=== PATIENT | male | born 1950 | race Caucasian/White ===

== ENCOUNTER 2019-08-11 01:39 | Inpatient (IN) | payer OTHER, MEDICARE ==
[2019-08-11] VITALS (41 sets, daily range): BP systolic 124–215; BP diastolic 75–108
[~2019-08-11] VITALS: Ht 175.3 cm; Wt 100.0 kg
[~2019-08-11 01:39] MED LIST: ALLO300T2 PO; ASPI-255 PO; Amoxicillin/Clavulanate Potas PO; BUSP5TA PO; CRES40TA PO; DILT1CAP2 PO; FLUO20CA19 PO; GABA-843 PO; GLIP5TAB8 PO; LIDO5OIN11 TOP; METF-414 PO; MULTLIQ PO; Meclizine Hcl PO; NATUSOL OU; OMEP1CAP73 PO; OXAZ10CA3 PO; POTA10TA17 PO; PRAZ2CAP PO; THIA100T7 PO
[2019-08-11 02:09] LABS: BASO % 0.3 % (0.0-1.0); EOS # 0.1 10^3/uL (0.0-0.5); EOS % 1.4 % (0.0-3.0); HEMATOCRIT 44.7 % (42.0-52.0); HEMOGLOBIN 14.4 g/dl (13.5-17.5); LYMPH # 2.8 10^3/uL (1.5-5.0); LYMPH % 29.2 % (24.0-44.0); MEAN CORPUSCULAR HEMOGLOBIN 30.9 pg (27.0-33.0); MEAN CORPUSCULAR HGB CONC 32.2 g/dl (32.0-36.5); MEAN CORPUSCULAR VOLUME 95.9 fl (80.0-96.0); MONO # 0.4 10^3/uL (0.0-0.8); MONO % 3.9 % (0.0-5.0); NEUTROPHILS # 6.3 10^3/uL (1.5-8.5); NEUTROPHILS % 64.7 % (36.0-66.0); PLATELET COUNT, AUTOMATED 210 10^3/uL (150-450); RED BLOOD COUNT 4.66 10^6/uL (4.30-6.10); WHITE BLOOD COUNT 9.7 10^3/uL (4.0-10.0)
[2019-08-11] MEDS ORDERED: GLIP5TAB20 PO ×2 (02:15→04:17)
[2019-08-11] MEDS ORDERED: D 202000 PO (02:15)
[2019-08-11] MEDS ORDERED: K-TA10TA2 PO ×2 (02:15→04:17)
[2019-08-11] MEDS ORDERED: DEBR6.5S4 OTIC (02:15)
[2019-08-11] MEDS ORDERED: diclofenac gel (02:15)
[2019-08-11] MEDS ORDERED: OMEP40CA97 PO (02:15)
[2019-08-11] MEDS ORDERED: diclofenac 1% gel (02:15)
[2019-08-11] MEDS ORDERED: FLUO20CA20 PO (02:15)
[2019-08-11] MEDS ORDERED: METF-791 PO ×2 (02:15→04:17)
[2019-08-11] MEDS ORDERED: ARIP1TAB4 PO (02:15)
[2019-08-11] MEDS ORDERED: DILT120C78 PO (02:15)
[2019-08-11 02:19] LABS: INR 1.02; PROTHROMBIN TIME 13.1 SECONDS (11.8-14.0)
[2019-08-11 02:20] LABS: PARTIAL THROMBOPLASTIN TIME 25.3 SECONDS (25.0-38.4)
[2019-08-11 02:21] LABS: BILIRUBIN,DIRECT 0.1 MG/DL (0.0-0.2); BILIRUBIN,TOTAL 0.4 MG/DL (0.2-1.0); TOTAL PROTEIN 8.6 GM/DL (6.4-8.2)
[2019-08-11 02:35] LABS: BLOOD UREA NITROGEN 9 MG/DL (7-18); CALCIUM LEVEL 8.8 MG/DL (8.8-10.2); CARBON DIOXIDE LEVEL 24 MEQ/L (21-32); CHLORIDE LEVEL 104 MEQ/L (98-107); CK-MB VALUE MASS 1.4 NG/ML (<3.6); CPK CREATINE PHOSPHOKINASE 87 U/L (39-308); CREATININE FOR GFR 0.99 MG/DL (0.70-1.30); ETHYL ALCOHOL (ETHANOL) < 0.003 % (0.000-0.010); GLOMERULAR FILTRATION RATE > 60.0 (>42); GLUCOSE, FASTING 231 MG/DL (70-100); MAGNESIUM LEVEL 1.8 MG/DL (1.8-2.4); MB/CK RELATIVE INDEX 1.61 (< OR =4); POTASSIUM SERUM 3.4 MEQ/L (3.5-5.1); SODIUM LEVEL 140 MEQ/L (136-145); TROPONIN I < 0.02 NG/ML (< 0.10)
[2019-08-11] MEDS ORDERED: ISOVUE-370 76% 100ML VIAL (Q9967) As Ordered ONE (02:44)
--- NOTE | 2019-08-11 03:12 | REP ---
Clinical: Syncope. Comparison: 04/03/2015. Findings: Stable cardiomegaly and chronic interstitial changes are appreciated. Right pleural effusion and right basilar atelectasis suggested. No pneumothorax. Skeletal structures intact. Impression: Cardiomegaly with right-sided pleural effusion and basilar atelectasis. Electronically Signed by aVn Martin MD 08/11/2019 03:03 A
--- NOTE | 2019-08-11 03:46 | REPVR ---
PROCEDURE INFORMATION: Exam: CT Angiography Chest With Contrast Exam date and time: 08/11/2019 2:39 AM Age: 68 years old Clinical indication: Chest pain; Type not specified; Additional Info: syncope, new RBBB R/O PE TECHNIQUE: Imaging protocol: Computed tomographic angiography of the chest with intravenous contrast. 3D rendering: MIP and/or 3D reconstructed images were created by the technologist. Radiation optimization: All CT scans at this facility use at least one of these dose optimization techniques: automated exposure control; mA and/or kV adjustment per patient size (includes targeted exams where dose is matched to clinical indication); or iterative reconstruction. Contrast material: ISO; Contrast volume: 75 ml; Contrast route: AC; COMPARISON: CR PORTABLE CHEST X-RAY 08/11/2019 2:25 AM FINDINGS: Limitations: Examination is limited by motion artifact. Pulmonary arteries: Normal. No pulmonary emboli. Aorta: Mild atherosclerotic disease. No aortic aneurysm. No aortic dissection. Tracheobronchial tree: Unremarkable. Lungs: Centrilobular emphysematous lung disease. Right lower lobe lung consolidation. Mild consolidation in the anterior right upper lobe. Centrilobular nodules in the right upper lobe measuring up to 3 mm. Pleural space: Moderate right pleural effusion. No pneumothorax. Heart: Mild cardiomegaly. Coronary arteries: Moderate coronary artery calcification. Mediastinum: Small mucous in the trachea. Lymph nodes: Unremarkable. No enlarged lymph nodes. Bones/joints: Mild degenerative spine. Multiple healing right rib fractures. Soft tissues: Unremarkable. IMPRESSION: 1. Negative for pulmonary embolism. 2. Right lung consolidations. Suspicious for pneumonia. 3. Centrilobular nodules in the right upper lobe. Multiple left lung nodules. For patients at low risk (minimal or absent history of smoking and of other known risk factors), no routine follow-up is indicated. For patients at high risk (history of smoking or of other known risk factors), consider optional CT at 12 months. (Diamond et al., Fleischner Society, 2017) 4. Emphysematous lung disease. 5. Moderate right pleural effusion. 6. Additional findings as described Electronically signed by: Kiara Butt On 08/11/2019 03:45:42 AM
[2019-08-11 04:15] LABS: APPEARANCE, URINE CLEAR (CLEAR); BACTERIA, URINE AUTO NEGATIVE (NEGATIVE); BILIRUBIN, URINE AUTO NEGATIVE (NEGATIVE); BLOOD, URINE BLOOD 1+ (NEGATIVE); COLOR, URINE YELLOW (YELLOW); GLUCOSE, URINE (UA) AUTO 2+ mg/dL (NEGATIVE); KETONE, URINE AUTO NEGATIVE (NEGATIVE); LEUKOCYTE ESTERASE, URINE AUTO NEGATIVE (NEGATIVE); MUCUS, URINE SMALL (NEGATIVE); NITRITE, URINE AUTO NEGATIVE (NEGATIVE); PROTEIN, URINE AUTO 2+ mg/dL (NEGATIVE); RBC, URINE AUTO 4 /HPF (0-3); SQUAMOUS EPITHELIAL CELL UR AU 0 /HPF (0-6); UROBILINOGEN, URINE AUTO 0.2 mg/dL (0.0-2.0); WBC, URINE AUTO 1 /HPF (0-3)
[2019-08-11] MEDS ORDERED: OMEP-218 PO (04:17)
[2019-08-11] MEDS ORDERED: ZYLO300T6 PO (04:17)
[2019-08-11] MEDS ORDERED: D3 22000 PO (04:17)
[2019-08-11] MEDS ORDERED: FLUO20CA19 PO (04:17)
[2019-08-11] MEDS ORDERED: DEBR6.5S4 AU (04:17)
[2019-08-11] MEDS ORDERED: ABIL1TAB13 PO (04:17)
[2019-08-11] MEDS ORDERED: DILT120C77 PO (04:17)
[2019-08-11] MEDS ORDERED: ACETAMINOPHEN TAB 650MG DOSE (2X325MG) PO PRN (05:00)
[2019-08-11] MEDS ORDERED: MOM 30ML SUSPENSION UDC PO PRN (05:00)
[2019-08-11] MEDS ORDERED: DEXTROSE 50% 50 ML SYRINGE IV PRN (05:00)
[2019-08-11] MEDS ORDERED: GLUCOSE 4 GM CHEW TABLET PO PRN (05:00)
[2019-08-11] MEDS ORDERED: GLUCAGON FOR INJ 1 MG VIAL (J1610) SC PRN (05:00)
--- NOTE | 2019-08-11 05:51 | HPEPDOC ---
[facility] Medical History & Physical Date of Admission Aug 11, 2019 Date of Service: Aug 11, 2019 History and Physical CHIEF COMPLAINT: Syncope HISTORY OF PRESENT ILLNESS: This is a 68-year-old male presented to the ER via ambulance after syncopal episode at home which was witnessed by his at midnight. He states around midnight he woke having trouble breathing/short of breath where then proceeded to rolled out of bed to the floor. states that he was supposedly unresponsive/unconscious for 35 minutes on floor then became responsive with no intervention. He was then able to crawl himself to a chair while they waited for EMS to arrive. She notes that he was clammy and pale and cool to touch. She states after 15 minutes EMS arrived and they said he was slightly tachycardic with heart rate 140 and slightly confused. He was then brought to the ER for further evaluation. He states that he is currently back to his mental baseline which his agrees with. He notes that for the last 3 days hes been feeling unwell. He has noticed decreased by mouth intake during the dinnertime and has not enjoyed his past time of drinking bourbon nightly since Friday as well. He does endorse recent trauma to his right chest several weeks prior after a fall. He followed up with his primary care provider at the [facility] with imaging which was negative. He does endorse since then he has right chest wall has been hurting. He describes his pain as sore in nature that is constant. He denies pain, substernal pain, pleuritic chest pain, hematoma or bruising to the skin. Lastly, he does also endorse having some night sweats for the last few months but denies any weight loss. In the ER his vitals were initially stable slight hypertension of 182/83 but then he became hypoxic and satting at 92% on 2 L of nasal cannula. EKG showed a new onset right RBBB which patient denies having any chest pain recently. CT of the chest angiogram was negative for PE but did show a significant consolidation in the right lung with pleural effusion. Hospital team was then called for admission. PAST MEDICAL HISTORY: 1. Type 2 diabetes with peripheral neuropathy 2. Hypertension. 3. Hyperlipidemia 4. GERD 5. Gout 6. PTSD 7. BPH 8. History of vasovagal syncope 9. Alcohol abuse HOME MEDICATIONS: Please see below. ALLERGIES: Please see below PAST SURGICAL HISTORY: 1. Appendectomy 2. Ankle surgery SOCIAL HISTORY: Lives with: At home with his Employment: Retired from the , Tobacco use: Former smoker quit greater than 10 years ago 40 pack years. ETOH: Alcohol abuser drinks 5-6 shots per day, Illicit drug use: Denies any illicit drug use, CODE STATUS: Full code FAMILY HISTORY:Reviewed mother diabetes hypertension father emphysema REVIEW OF SYSTEMS: 10 systems reviewed and negative other than HPI PHYSICAL EXAMINATION: VITAL SIGNS: See below GENERAL: Pleasant 68-year-old male sitting up in bed awake alert oriented speaking in complete sentences no acute distress HEENT: Atraumatic normocephalic pupils are equal round reactive Moist mucous membranes no elevation in CVP CARDIOVASCULAR: Distant heart sounds due to large body habitus but S1 S2 regular no additional heart sounds appreciated. RESPIRATORY: Clear to auscultation bilaterally in the left lungs. Right lungs dullness to percussion and posteriorly in the upper and lower lobes, eating a egophony in the upper and lower lobes, positive whispered pectoriloquy ABDOMINAL: Obese abdomen Bowel sounds present abdomen soft and nontender EXTREMITIES: No clubbing cyanosis or edema NEUROLOGICAL: Spontaneously moves all 4 extremities cranial 2 through 12 grossly intact no gross focal deficits appreciated PSYCHOLOGICAL: Appropriate LABORATORY DATA: See below. MICROBIOLOGY: Please see below. IMAGIN08/11/2019 EKG- ventricular rate 73 bpm MI rate 200 MS, QTC 492. Sinus rhythm regular rate borderline left axis deviation with new right bundle branch block not seen in 2014 Chest x-raycardiomegaly with right-sided pleural effusion and basilar atelectasis CT of the chest NG tube - negative for pulmonary embolism, right lung consolidation suspicious for pneumonia A, centrilobular nodules in the right upper lobes multiple left lung nodules. Emphysematous lung disease, moderate right pleural effusion ASSESSMENT & PLAN: This is a . PROBLEMS: 1. Syncope secondary to pneumonia versus cardiac versus deconditioning. Chest CT does show consolidation will treat for pneumonia with Avelox will obtain sputum culture and pro-calcitonin will de-escalate pending results. Have also chest PT and incentive spirometry on board. EKG in the ER did show new onset RBBB. Will obtain echocardiogram and monitor with telemetry. Will trend cardiac markers 3, not on a beta makenna but heart rate bradycardic during exam. Ash monitor for now. PT and OT consults have been placed as well. 2. Abnormal CT of the chest. Notes centrilobular nodules in the right upper lobes and multiple left lung nodules., This note patient and has yearly follow- ups with CT imaging continue with outpatient follow-up. 3. New onset RBBB. Refer to plan 1 4. Hypertension. Continue with home diltiazem 5. Depression. Continue with home Abilify and Prozac 6.. Diabetes. Well hold home medications and placed on insulin sliding scale 7. GERD. Continue with Prilosec 8. History of alcohol abuse. Last drink was Friday. Denies history of, withdrawals or seizures. Well monitor with CIWA Hypokalemia - Will supplement DVT PROPHYLAXIS: Lovenox DISPOSITION: Inpatient expect at least 2 midnights Vital Signs Vital Signs Date Time Temp Pulse Resp B/P (MAP) Pulse Ox O2 Delivery O2 Flow Rate FiO2 08/11/19 01:55 63 18 170/84 (112) 93 Nasal Cannula 2.0 08/11/19 01:46 99.1 Laboratory Data Labs 24H Laboratory Tests 2 08/11/19 01:51: Immature Granulocyte % (Auto) 0.5, Neutrophils (%) (Auto) 64.7, Lymphocytes (%) (Auto) 29.2, Monocytes (%) (Auto) 3.9, Eosinophils (%) (Auto) 1.4, Basophils (%) (Auto) 0.3, Neutrophils # (Auto) 6.3, Lymphocytes # (Auto) 2.8, Monocytes # (Auto) 0.4, Eosinophils # (Auto) 0.1, Basophils # (Auto) 0.0, Nucleated Red Blood Cells % (auto) 0.0, Prothrombin Time 13.1, Prothromb Time International Ratio 1.02, Activated Partial Thromboplast Time 25.3, Bedside Glucose (Misc Panel) 245H, Anion Gap 12, Glomerular Filtration Rate > 60.0, Calcium Level 8.8, Magnesium Level 1.8, Total Bilirubin 0.4, Direct Bilirubin 0.1, Aspartate Amino Transf (AST/SGOT) 53H, Alanine Aminotransferase (ALT/SGPT) 48, Alkaline Phosphatase 93, Total Creatine Kinase 87, Creatine Kinase MB 1.4, Creatine Kinase MB Relative Index 1.61, Troponin I < 0.02, KT-Swj-A-Type Natriuretic Peptide 579H, Total Protein 8.6H, Albumin 4.0, Albumin/Globulin Ratio 0.87L, Thyroid Stimulating Hormone (TSH) 4.340H, Ethyl Alcohol Level < 0.003 08/11/19 04:02: Urine Color YELLOW, Urine Appearance CLEAR, Urine pH 5.0, Urine Specific [place] 1.030, Urine Protein 2+H, Urine Glucose (Auto)(UA) 2+H, Urine Ketones (Auto) NEG ATIVE, Urine Blood 1+H, Urine Nitrite NEGATIVE, Urine Bilirubin NEGATIVE, Urine Urobilinogen 0.2, Urine Leukocyte Esterase (Auto) NEGATIVE, Urine WBC (Auto) 1, Urine RBC (Auto) 4H, Urine Hyaline Casts (Auto) 0, Urine Bacteria (Auto) NEGATIVE, Urine Squamous Epithelial Cells 0, Urine Mucus (Auto) SMALL, Urine Sperm (Auto) CBC/BMP Laboratory Tests 08/11/19 01:51 Home Medications Scheduled Allopurinol (Zyloprim) 300 Mg Tablet, 300 MG PO DAILY Aripiprazole (Abilify) 2 Mg Tablet, 2 MG PO DAILY Carbamide Peroxide (Debrox) 15 Ml Drops, 10 DROP AU BID STARTING 08/14/19 FOR 5 DAYS Cholecalciferol (Vitamin D3) (Vitamin D3) 2,000 Unit Tablet, 2,000 UNIT PO DAILY Diltiazem HCl (Diltiazem 24Hr ER) 120 Mg Cap.er.24h, 120 MG PO DAILY Fluoxetine Hcl (Fluoxetine HCl) 20 Mg Capsule, 60 MG PO DAILY Glipizide (Glipizide ER) 5 Mg Tab.er.24, 5 MG PO DAILY Metformin HCl (Metformin HCl ER) 500 Mg Tab.er.24h, 2,000 MG PO DAILY Omeprazole (Omeprazole) 20 Mg Capsule.dr, 40 MG PO DAILY Potassium Chloride (K-Tab ER) 10 Meq Tablet.er, 20 MEQ PO DAILY Allergies Coded Allergies: No Known Allergies (Unverified , 04/03/15) GME ATTESTATION GME ATTESTATION My faculty preceptor for this patient encounter was physically present during the encounter and was fully available. All aspects of the patient interview, examination, medical decision making process, and medical care plan development were reviewed and approved by the faculty preceptor. The faculty preceptor is aware and concurs with the plan as stated in the body of this note and will attest to such by his/her cosignature. ATTENDING NOTE I, Marielena Boo, have independently examined this patient and performed my own physical exam, as well as reviewed the documentation and edited where necessary. I have discussed in detail with the resident / student the findings and plan of treatment as documented by the resident / student and edited their note. I agree with their findings and treatment plan and have edited their documentation. I will continue to follow the patient during this hospital stay. CARLOS WAYNE DO Aug 11, 2019 05:51 MARIELENA BOO MD Aug 11, 2019 06:52
[2019-08-11] MEDS ORDERED: MOXIFLOXACIN HCL 400 MG in IV 1 EA IV SCH (06:00)
[2019-08-11 07:18] LABS: HEMATOCRIT 35.8 % (42.0-52.0); MEAN CORPUSCULAR HGB CONC 32.7 g/dl (32.0-36.5); PLATELET COUNT, AUTOMATED 158 10^3/uL (150-450); RED BLOOD COUNT 3.77 10^6/uL (4.30-6.10); WHITE BLOOD COUNT 7.1 10^3/uL (4.0-10.0)
[2019-08-11 07:29] LABS: HEMOGLOBIN 11.7 g/dl (13.5-17.5)
[2019-08-11 07:47] LABS: BLOOD UREA NITROGEN 9 MG/DL (7-18); CALCIUM LEVEL 8.6 MG/DL (8.8-10.2); CARBON DIOXIDE LEVEL 25 MEQ/L (21-32); CHLORIDE LEVEL 107 MEQ/L (98-107); CREATININE FOR GFR 0.86 MG/DL (0.70-1.30); GLOMERULAR FILTRATION RATE > 60.0 (>42); GLUCOSE, FASTING 165 MG/DL (70-100); MAGNESIUM LEVEL 1.9 MG/DL (1.8-2.4); POTASSIUM SERUM 4.2 MEQ/L (3.5-5.1); SODIUM LEVEL 140 MEQ/L (136-145)
[2019-08-11] MEDS: CARBAMIDE PEROXIDE 6.5% OTIC SOLN 15ML AU SCH ×2 (08:39→20:26)
[2019-08-11] MEDS: guaiFENesin ER 600 MG TAB PO SCH ×2 (08:40→20:24)
[2019-08-11] MEDS: HumaLOG INSULIN (NovoLOG) PER UNIT SC SCH ×3 (08:41→18:09)
[2019-08-11] MEDS ORDERED: FLUoxetine 20 MG CAP PO SCH (09:00)
[2019-08-11] MEDS ORDERED: OMEPRAZOLE 20 MG CAP PO SCH (09:00)
[2019-08-11] MEDS ORDERED: ENOXAPARIN 40 MG/0.4 ML SYRINGE (J1650) SC SCH (09:00)
[2019-08-11] MEDS ORDERED: allopurinoL 300 MG TAB PO SCH (09:00)
[2019-08-11] MEDS ORDERED: ARIPiprazole 2 MG TAB PO SCH (09:00)
[2019-08-11] MEDS ORDERED: POTASSIUM CHLORIDE 10 MEQ SR TABLET PO SCH (09:00)
[2019-08-11 09:08] LABS: CK-MB VALUE MASS 1.6 NG/ML (<3.6); MB/CK RELATIVE INDEX 1.39 (< OR =4); TROPONIN I 0.1 NG/ML (< 0.10)
--- NOTE | 2019-08-11 10:19 | ECGEPIP ---
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
[2019-08-11 14:13] LABS: CK-MB VALUE MASS 2.3 NG/ML (<3.6); MB/CK RELATIVE INDEX 1.56 (< OR =4); TROPONIN I 0.08 NG/ML (< 0.10)
[2019-08-11] MEDS ORDERED: PERCOCET 5MG/325MG TAB PO PRN (15:00)
[2019-08-11] MEDS ORDERED: MORPHINE 2 MG/ML 1ML VIAL (J2270) IV PRN (15:00)
--- NOTE | 2019-08-11 15:30 | REP ---
Portable chest x-ray: AP semi-erect view. 03:15 p.m. film. History: Short of breath. Comparison study: August 11, 2019. 02:26 a.m. film. Findings: Heart is mildly prominent unchanged in size. The left lung is clear. There is linear density along the minor fissure on the right consistent with fibrosis or atelectasis. No infiltrate is seen. CT study from earlier this date showed a small right pleural effusion and infiltrate like opacity in the right lower lobe. Impression: Hazy opacity right base consistent with fluid and consolidation unchanged. Mildly prominent heart unchanged. Electronically Signed by Ravi Rick MD 08/11/2019 03:22 P
[2019-08-11 15:32] LABS: HEMATOCRIT 41.8 % (42.0-52.0); HEMOGLOBIN 13.3 g/dl (13.5-17.5); MEAN CORPUSCULAR HEMOGLOBIN 30.9 pg (27.0-33.0); MEAN CORPUSCULAR HGB CONC 31.8 g/dl (32.0-36.5); MEAN CORPUSCULAR VOLUME 97.2 fl (80.0-96.0); PLATELET COUNT, AUTOMATED 198 10^3/uL (150-450); WHITE BLOOD COUNT 8.5 10^3/uL (4.0-10.0)
[2019-08-11 15:55] LABS: ALT/SGPT 46 U/L (12-78); BLOOD UREA NITROGEN 11 MG/DL (7-18); CALCIUM LEVEL 8.6 MG/DL (8.8-10.2); CARBON DIOXIDE LEVEL 21 MEQ/L (21-32); CHLORIDE LEVEL 107 MEQ/L (98-107); CREATININE FOR GFR 1.15 MG/DL (0.70-1.30); GLOMERULAR FILTRATION RATE > 60.0 (>42); GLUCOSE, FASTING 196 MG/DL (70-100); POTASSIUM SERUM 3.5 MEQ/L (3.5-5.1); SODIUM LEVEL 141 MEQ/L (136-145)
[2019-08-11 15:56] LABS: ALBUMIN 3.6 GM/DL (3.2-5.2); BILIRUBIN,TOTAL 0.5 MG/DL (0.2-1.0); MAGNESIUM LEVEL 1.7 MG/DL (1.8-2.4); TOTAL PROTEIN 7.3 GM/DL (6.4-8.2)
[2019-08-11 15:57] LABS: CK-MB VALUE MASS 1.7 NG/ML (<3.6); MB/CK RELATIVE INDEX 0.99 (< OR =4); TROPONIN I 0.07 NG/ML (< 0.10)
[2019-08-11 16:03] LABS: ABG BASE EXCESS -1.7 (-2.0-2.0); ABG HCO3 22.8 MEQ/L (22.0-26.0); ABG PARTIAL PRESSURE CO2 37.8 mmHg (35.0-45.0); ABG PARTIAL PRESSURE O2 66.6 mmHg (75.0-100.0); ABG STANDARD HCO3 22.9 MEQ/L (22.0-26.0); ABG TOTAL CO2 23.9 MEQ/L (23.0-31.0); ABG pH (ARTERIAL) 7.398 UNITS (7.350-7.450)
--- NOTE | 2019-08-11 16:07 | IPNPDOC ---
Date Seen The patient was seen on 08/11/19. Progress Note INTERIM PROGRESS NOTE: ASHLEY CHILDS was called and ICU team, myself and Dr Perez, attended to the patient. Patient had been speaking with his attending physician and went unresponsive, reportedly looked "purple," and was not following any commands. He was placed on the case monitor and was found to have a 3-4 second pause, then 30-45 seconds of ventricular tachycardia, then sinus bradycardia in the 40s. Patient was saturating well on 2L NC, as he was when he was admitted the previous night. He did not have any new oxygen requirement. Patient was somewhat combative and complained of being "hot." He also complained of pain in his left shoulder and arm. After about 5 minutes, the patient began responding and was promptly moved to the ICU. An ABG, CXR, Cardiac marker panel, CBC, Echo, and EEG were ordered. The patient notes he does not have any memory of the event and it was similar to that of the event he had at home which prompted his trip to the ED. Imaging was reviewed with investment manager, who notes less likely pneumonia, rather R-sided pleural effusion and cardiomegaly with possible pericardial effusion. Cardiology (Dr. Ch) was consulted and he will see the patient at a later time. We recommend neurology consult at this time to evaluate for possible seizure-like activity. VS, I&O, 24H, [facility] Vital Signs/I&O Vital Signs Date Time Temp Pulse Resp B/P (MAP) Pulse Ox O2 Delivery O2 Flow Rate FiO2 08/11/19 13:45 97.6 50 20 124/76 (92) 94 Room Air 08/11/19 12:00 2.0 Laboratory Data 24H LABS Laboratory Tests 2 08/11/19 01:51: Immature Granulocyte % (Auto) 0.5, Neutrophils (%) (Auto) 64.7, Lymphocytes (%) (Auto) 29.2, Monocytes (%) (Auto) 3.9, Eosinophils (%) (Auto) 1.4, Basophils (%) (Auto) 0.3, Neutrophils # (Auto) 6.3, Lymphocytes # (Auto) 2.8, Monocytes # (Auto) 0.4, Eosinophils # (Auto) 0.1, Basophils # (Auto) 0.0, Nucleated Red Blood Cells % (auto) 0.0, Prothrombin Time 13.1, Prothromb Time International Ratio 1.02, Activated Partial Thromboplast Time 25.3, Bedside Glucose (Misc Panel) 245H, Anion Gap 12, Glomerular Filtration Rate > 60.0, Calcium Level 8.8, Magnesium Level 1.8, Total Bilirubin 0.4, Direct Bilirubin 0.1, Aspartate Amino Transf (AST/SGOT) 53H, Alanine Aminotransferase (ALT/SGPT) 48, Alkaline Phosphatase 93, Total Creatine Kinase 87, Creatine Kinase MB 1.4, Creatine Kinase MB Relative Index 1.61, Troponin I < 0.02, EX-Hsh-W-Type Natriuretic Peptide 579H, Total Protein 8.6H, Albumin 4.0, Albumin/Globulin Ratio 0.87L, Thyroid Stimulating Hormone (TSH) 4.340H, Ethyl Alcohol Level < 0.003 08/11/19 04:02: Urine Color YELLOW, Urine Appearance CLEAR, Urine pH 5.0, Urine Specific [place] 1.030, Urine Protein 2+H, Urine Glucose (Auto)(UA) 2+H, Urine Ketones (Auto) NEGATIVE, Urine Blood 1+H, Urine Nitrite NEGATIVE, Urine Bilirubin NEGATIVE, Urine Urobilinogen 0.2, Urine Leukocyte Esterase (Auto) NEGATIVE, Urine WBC (Auto) 1, Urine RBC (Auto) 4H, Urine Hyaline Casts (Auto) 0, Urine Bacteria (Auto) NEGATIVE, Urine Squamous Epithelial Cells 0, Urine Mucus (Auto) SMALL, Urine Sperm (Auto) 08/11/19 06:37: Bedside Glucose (Misc Panel) 186H 08/11/19 07:07: Nucleated Red Blood Cells % (auto) 0.0, Anion Gap 8, Glomerular Filtration Rate > 60.0, Calcium Level 8.6L, Magnesium Level 1.9 08/11/19 08:11: Total Creatine Kinase 115, Creatine Kinase MB 1.6, Creatine Kinase MB Relative Index 1.39, Troponin I 0.10# 08/11/19 11:52: Bedside Glucose (Misc Panel) 110 08/11/19 13:30: Total Creatine Kinase 147, Creatine Kinase MB 2.3, Creatine Kinase MB Relative Index 1.56, Troponin I 0.08 08/11/19 15:14: Bedside Glucose (Misc Panel) 204H 08/11/19 15:21: Nucleated Red Blood Cells % (auto) 0.0 CBC/BMP Laboratory Tests 08/11/19 01:51 08/11/19 07:07 08/11/19 15:21 Microbiology Microbiology 08/11/19 Blood Culture, Received Pending 08/11/19 Blood Culture, Received Pending GME ATTESTATION GME ATTESTATION My faculty preceptor for this patient encounter was physically present during the encounter and was fully available. All aspects of the patient interview, examination, medical decision making process, and medical care plan development were reviewed and approved by the faculty preceptor. The faculty preceptor is aware and concurs with the plan as stated in the body of this note and will attest to such by his/her cosignature. ARTEMIO CRUZ MD Aug 11, 2019 16:07
--- NOTE | 2019-08-11 16:56 | IPNPDOC ---
Subjective Date Seen The patient was seen on 08/11/19. Subjective Chief Complaint/HPI I was speaking to both the patient and his , while showing them images of his CT scan when patient became acutely unresponsive while supine in bed, turned blue in the face and flexed his arms. Joshua topete was called and patient was noted to have bradycardia with 4 second pause on tele followed by tachyarrhythmia. He regained consciousness without administering any cardiac medicatins. He did receive CPR for a limited time due to lack of palpable pulse. any post-ictal phase or urinary incontinence, but did c/o right sided chest pain prior to the event. He was admitted earlier this morning following syncopal event at home witnessed by , and findings of right pleural effusion with RLL consolidation. She reports that this event was similar to the one he experienced at home. Objective Physical Examination General Exam: Positive: Severe Distress Eye Exam: Negative: Sclera icteric ENT Exam: Positive: Mucous membr. moist/pink, Pharynx Normal, Tongue Midline Neck Exam: Positive: Supple, +2 carotid pulse wo bruit; Negative: Lymphadenopathy Chest Exam: Positive: Diminished (right base); Negative: Wheezing Heart Exam: Positive: Tachycardic, Bradycardic; Negative: Murmurs, Rubs Telemetry: Positive: Tachycardia, Bradycardia, SV Tach Abdomen Exam: Positive: Normal bowel sounds, Soft; Negative: Tenderness, Hepatospenomegaly, Mass Male Exam: Positive: Normal Genital Exam; Negative: Lesions, Edema Extremity Exam: Negative: Clubbing, Cyanosis, Edema Neuro Exam: Positive: Other (moving all 4 ext) Assessment /Plan Assessment # Acute syncopal event r/o arrhythmia - transfer to ICU - consult critical care team, updated at bedside by sc - consult neuro + cardiology - Echo - trend trops - Tele strip reviewed # RLL consolidation with small pleural effusion/Pleurisy - suspect this is inflammatory from fall onto right chest around gi, will need repeat image to ensure resolution - continue Moxifloxacin - await procalcitonin result - IS - percocet and morphine for pain control # Bradycardia - cardizem held this morning, will stop at this time # DM type 2 - diabetic diet - Sliding scale Plan/VTE VTE Prophylaxis Ordered?: Yes (lovenox) VTE Exclusion Mechanical Proph: N/A:VTE Prophy Ordered VTE Exclusion Pharmacological: N/A:VTE Prophy Ordered VS, I&O, 24H, Fishbone Vital Signs/I&O Vital Signs Date Time Temp Pulse Resp B/P (MAP) Pulse Ox O2 Delivery O2 Flow Rate FiO2 08/11/19 16:21 64 18 166/77 (106) 95 Nasal Cannula 2.0 08/11/19 15:13 97.9 Laboratory Data 24H LABS Laboratory Tests 2 08/11/19 01:51: Immature Granulocyte % (Auto) 0.5, Neutrophils (%) (Auto) 64.7, Lymphocytes (%) (Auto) 29.2, Monocytes (%) (Auto) 3.9, Eosinophils (%) (Auto) 1.4, Basophils (%) (Auto) 0.3, Neutrophils # (Auto) 6.3, Lymphocytes # (Auto) 2.8, Monocytes # (Auto) 0.4, Eosinophils # (Auto) 0.1, Basophils # (Auto) 0.0, Nucleated Red Blood Cells % (auto) 0.0, Prothrombin Time 13.1, Prothromb Time International Ratio 1.02, Activated Partial Thromboplast Time 25.3, Bedside Glucose (Misc Panel) 245H, Anion Gap 12, Glomerular Filtration Rate > 60.0, Calcium Level 8.8, Magnesium Level 1.8, Total Bilirubin 0.4, Direct Bilirubin 0.1, Aspartate Amino Transf (AST/SGOT) 53H, Alanine Aminotransferase (ALT/SGPT) 48, Alkaline Phosphatase 93, Total Creatine Kinase 87, Creatine Kinase MB 1.4, Creatine Kinase MB Relative Index 1.61, Troponin I < 0.02, VF-Zij-L-Type Natriuretic Peptide 579H, Total Protein 8.6H, Albumin 4.0, Albumin/Globulin Ratio 0.87L, Thyroid Stimulating Hormone (TSH) 4.340H, Ethyl Alcohol Level < 0.003 08/11/19 04:02: Urine Color YELLOW, Urine Appearance CLEAR, Urine pH 5.0, Urine Specific [place] 1.030, Urine Protein 2+H, Urine Glucose (Auto)(UA) 2+H, Urine Ketones (Auto) NEGATIVE, Urine Blood 1+H, Urine Nitrite NEGATIVE, Urine Bilirubin NEGATIVE, Urine Urobilinogen 0.2, Urine Leukocyte Esterase (Auto) NEGATIVE, Urine WBC (Auto) 1, Urine RBC (Auto) 4H, Urine Hyaline Casts (Auto) 0, Urine Bacteria (Auto) NEGATIVE, Urine Squamous Epithelial Cells 0, Urine Mucus (Auto) SMALL, Urine Sperm (Auto) 08/11/19 06:37: Bedside Glucose (Misc Panel) 186H 08/11/19 07:07: Nucleated Red Blood Cells % (auto) 0.0, Anion Gap 8, Glomerular Filtration Rate > 60.0, Calcium Level 8.6L, Magnesium Level 1.9, Procalcitonin 0.06 08/11/19 08:11: Total Creatine Kinase 115, Creatine Kinase MB 1.6, Creatine Kinase MB Relative Index 1.39, Troponin I 0.10# 08/11/19 11:52: Bedside Glucose (Misc Panel) 110 08/11/19 13:30: Total Creatine Kinase 147, Creatine Kinase MB 2.3, Creatine Kinase MB Relative Index 1.56, Troponin I 0.08 08/11/19 15:14: Bedside Glucose (Misc Panel) 204H 08/11/19 15:21: Nucleated Red Blood Cells % (auto) 0.0, Anion Gap 13, Glomerular Filtration Rate > 60.0, Calcium Level 8.6L, Magnesium Level 1.7L, Total Bilirubin 0.5, Aspartate Amino Transf (AST/SGOT) 51H, Alanine Aminotransferase (ALT/SGPT) 46, Alkaline Phosphatase 86, Total Creatine Kinase 172, Creatine Kinase MB 1.7, Creatine Kinase MB Relative Index 0.99, Troponin I 0.07, Total Protein 7.3, Albumin 3.6, Albumin/Globulin Ratio 0.97L 08/11/19 15:51: Blood Gas Bicarbonate Standard 22.9, Arterial Blood pH 7.398, Arterial Blood Partial Pressure CO2 37.8, Arterial Blood Partial Pressure O2 66.6L, Arterial Blood Total CO2 23.9, Arterial Blood HCO3 22.8, Arterial Blood Base Excess -1.7, Arterial Blood Oxygen Saturation 92.0L CBC/BMP Laboratory Tests 08/11/19 01:51 08/11/19 07:07 08/11/19 15:21 Microbiology Microbiology 08/11/19 Blood Culture, Received Pending 08/11/19 Blood Culture, Received Pending JOSH LUNDBERG MD Aug 11, 2019 16:51
[2019-08-11] MEDS ORDERED: MAGNESIUM SULFATE 1 GM/100 ML D5W BAG (10MG/ML) (J3475) As Ordered ONE (17:11)
[2019-08-11] MEDS: MAG SULF 1GM/100ML (MAG RUN) 1 GM in IV 1 EA IV SCH ×3 (17:20→23:02)
--- NOTE | 2019-08-11 19:59 | ECGEPIP ---
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
[2019-08-11] MEDS: MORPHINE 2 MG/ML 1ML VIAL (J2270) IV PRN (20:27)
[2019-08-11 20:30] LABS: CK-MB VALUE MASS 1.6 NG/ML (<3.6); MB/CK RELATIVE INDEX 1.02 (< OR =4); TROPONIN I 0.1 NG/ML (< 0.10)
[2019-08-11] MEDS ORDERED: HumaLOG INSULIN (NovoLOG) PER UNIT SC SCH (21:00)
[2019-08-11] MEDS ORDERED: FUROSEMIDE 40 MG/4 ML VIAL (J1940) As Ordered ONE (21:45)
[2019-08-11] MEDS ORDERED: FUROSEMIDE 40 MG/4 ML VIAL (J1940) IV ONE (21:45)
[2019-08-11] MEDS ORDERED: SPIRONOLACTONE 25 MG TAB PO SCH (21:50)
[2019-08-11] MEDS ORDERED: POTASSIUM CHLORIDE 10 MEQ SR TABLET PO ONE (22:15)
[2019-08-11] MEDS ORDERED: PROMETHAZINE INJ 25 MG/ML VIAL (J2550) As Ordered ONE (22:36)
[2019-08-11] MEDS ORDERED: PROMETHAZINE INJ 25 MG/ML VIAL (J2550) IV ONE (22:45)
[2019-08-11] MEDS ORDERED: niCARdipine IV 40 MG in IV 1 EA IV SCH (23:00)
[2019-08-11] MEDS ORDERED: NITROGLYCERIN 2% OINT 1 GM *U/D* PKT As Ordered ONE (23:26)
[2019-08-12] VITALS (11 sets, daily range): BP systolic 141–189; BP diastolic 79–93
[2019-08-12] MEDS ORDERED: KCL 10MEQ/100ML SWI (KRUN) 10 MEQ in IV 1 EA IV SCH ×2
[2019-08-12] MEDS: FUROSEMIDE 40 MG/4 ML VIAL (J1940) IV SCH ×2 (00:04→06:34)
[2019-08-12] MEDS: NITROGLYCERIN 2% OINT 1 GM *U/D* PKT TOP SCH ×2 (00:05→04:48)
[2019-08-12] MEDS: lisinopriL 10 MG TAB PO SCH ×2 (00:38→06:33)
[2019-08-12] MEDS ORDERED: POTASSIUM CHLORIDE 10 MEQ SR TABLET PO SCH ×2 (00:45→22:00)
[2019-08-12] MEDS: MORPHINE 2 MG/ML 1ML VIAL (J2270) IV PRN (01:09)
[2019-08-12] MEDS: MAG SULF 1GM/100ML (MAG RUN) 1 GM in IV 1 EA IV SCH ×2 (04:53→06:37)
[2019-08-12 05:12] LABS: HEMATOCRIT 39.2 % (42.0-52.0); HEMOGLOBIN 13.4 g/dl (13.5-17.5); MEAN CORPUSCULAR HEMOGLOBIN 32.2 pg (27.0-33.0); MEAN CORPUSCULAR HGB CONC 34.2 g/dl (32.0-36.5); MEAN CORPUSCULAR VOLUME 94.2 fl (80.0-96.0); PLATELET COUNT, AUTOMATED 197 10^3/uL (150-450); RED BLOOD COUNT 4.16 10^6/uL (4.30-6.10); WHITE BLOOD COUNT 7.9 10^3/uL (4.0-10.0)
[2019-08-12 05:35] LABS: BLOOD UREA NITROGEN 11 MG/DL (7-18); CALCIUM LEVEL 8.5 MG/DL (8.8-10.2); CARBON DIOXIDE LEVEL 27 MEQ/L (21-32); CHLORIDE LEVEL 100 MEQ/L (98-107); CREATININE FOR GFR 0.95 MG/DL (0.70-1.30); GLOMERULAR FILTRATION RATE > 60.0 (>42); GLUCOSE, FASTING 218 MG/DL (70-100); MAGNESIUM LEVEL 2.2 MG/DL (1.8-2.4); POTASSIUM SERUM 3.8 MEQ/L (3.5-5.1); SODIUM LEVEL 136 MEQ/L (136-145)
[2019-08-12] MEDS ORDERED: AMIODARONE HCL 150 MG/100 ML PREMIXED BAG (NEXTERONE) (J0282 PER 30MG) As Ordered ONE (07:10)
--- NOTE | 2019-08-12 07:25 | ECHO ---
DATE OF PROCEDURE: 08/11/2019 HEIGHT: 69 inches WEIGHT: 231 pounds. BODY SURFACE AREA: 2.2 sq m Inpatient ICU room 3202 REFERRING PHYSICIAN: Dr. Jana Davies INDICATIONS: Syncope. MEASUREMENTS: 2-D Measurements: RV - 4.9 cm LV - 4.9 cm Septum -1.2 cm Posterior wall - 1.2 cm Aortic root - 3.3 cm LA - 4.5 cm LVEF - 60% Doppler Measurements: AV - 1.54 meters per second LVOT - 0.8 meters per second LVOT diameter - 2.2 cm MV-E 47, A -75, E/A ratio - 0.6 Early mitral deceleration time 370 milliseconds PV - 0.8 meters per second Pulmonary artery acceleration time 95 milliseconds PASP - 42 mmHg IVC - 2.44 cm COMMENTS: Normal sinus rhythm with first-degree AV block and right bundle branch block. Somewhat technically challenging study in light of the patient's body configuration and pulmonary disease but diagnostically useful information was still obtained. M-mode and two-dimensional echocardiography was performed with pulsed, continuous wave, and tissue Doppler studies. Mild concentric left ventricle hypertrophy with preserved systolic function. At least mildly dilated left atrium with grade 1 LV diastolic dysfunction. No tissue Doppler was performed for further estimated duration of his mean left atrial pressure. Moderately dilated right heart chambers with right ventricular free wall hypokinesis and Doppler evidence of at least moderate pulmonary hypertension. Moderately dilated IVC with absent respiratory collapse in keeping with elevated central venous pressure of at least 20 mmHg/right heart failure. Mild aortic valvular sclerosis without functional abnormality. Normal aortic root size. Normal appearing and functioning mitral valvular apparatus. Normal appearing tricuspid valve with only a trace insufficiency. No separate intracardiac mass or pericardial effusion.
[2019-08-12] MEDS ORDERED: POTASSIUM CHLORIDE 10 MEQ SR TABLET PO ONE (07:30)
[2019-08-12] MEDS ORDERED: MAGNESIUM OXIDE 400 MG TAB (MAG-OX) PO SCH (09:00)
--- NOTE | 2019-08-12 09:29 | CR ---
DATE OF CONSULTATION: 08/11/2019 CARDIOLOGY CONSULTATION. INDICATION: Paroxysmal ventricular tachycardia. HISTORY: This 68-year-old father of one, retired resident of [place], [place] claims to have been walking a total of 3-4 miles daily up until approximately one year ago. The past year because of increasing ease of fatigue he has been limited chiefly to activity indoors; he has not even gone shopping for the past several months. He ambulates with a cane. His medical problems include obesity with sleep disturbance, chronic hypertension, smoking induced chronic pulmonary obstructive disease (COPD), gastroesophageal reflux disease, alcoholism and depression with gout. April 03, 2015 was hospitalized for a brief episode of unresponsiveness attributed to the heat. Hospitalized for 48 hours without arrhythmia. EKG was reported to show sinus rhythm at 78 beats per minute and nonspecific ST / T-wave abnormalities. Echocardiogram was with reportedly normal left and right ventricular chamber sizes and suspected wall motion. Both atria were at least mildly enlarged. Mild aortic valvular sclerosis but other valves appeared normally and functioned normally. There was Doppler evidence of left ventricular (LV) diastolic dysfunction but they were unable to estimate his pulmonary arterial pressure. Inferior vena cava (IVC) size was reportedly normal, small pericardial fat pad but no pericardial effusion. An electroencephalogram (EEG) was performed for suspected seizure and showed no evidence of epileptiform abnormalities. This morning at 01:40 a.m. the patient was reportedly found by his on the floor having fallen out of bed complaining of midsternal chest and back pain. Emergency medical services (EMS) upon arrival found the patient to be pale, cool and clammy with tachycardia of 140 bpm. The patient was slightly confused. He was given two sublingual nitroglycerin and four aspirins on route to the hospital. Initial emergency room (ER) vital signs showed a pulse of 63 bpm, blood pressure 170/84, respiratory rate of 18, O2 saturation of 93%. He was afebrile. Initial blood work showed a hemoglobin of 14.4. Normal white blood cell count and platelet count. PT/INR were normal. Urinalysis showed 2+ proteinuria and glucosuria with 1+ microscopic hematuria. Glucose was 165, BUN 9. creatinine 0.99, potassium was 3.4, magnesium was 1.8. Serum calcium was 8.8 with albumin 4.0, CPK and troponin I levels were initially normal but became slightly indeterminate at 0.1 later today. His BNP level was slightly elevated at 579. Ultra sensitive TSH was normal at 4.3. Ethanol level was negative. Initial portable chest x-ray did show stable cardiomegaly with chronic interstitial changes, a right pleural effusion. A chest CT angiogram was reported to show again mild cardiomegaly with moderate coronary calcification, mild thoracic aortic atherosclerotic disease but no dissection or aneurysm, pulmonary arteries were reported to be normal with no pulmonary emboli. Lung vang showed central lobular emphysema with possible atelectasis right lower lobe with moderate right pleural effusion. Degenerative changes of his thoracic spine with multiple healing right rib fractures and right lung contusion, no pericardial effusion. Epicardial fat pad. EKG was reported to show sinus rhythm at 66 bpm with first-degree AV block, right bundle branch block and prolonged QT interval. The patient was admitted to the telemetry unit with close observation. He was started on Lovenox subcu for DVT prophylaxis and moxifloxacin for possible aspiration pneumonia. His diltiazem, Prozac and Abilify medications were continued. At approximately 03:00 p.m. the patient had an episode of syncope associated with polymorphic ventricular tachycardia which spontaneously resolved to sinus bradycardia with obvious QT prolongation followed by nonsustained runs of polymorphic ventricular tachycardia. Longest bout at 03:00 p.m. resulted in a cardiac arrest call and he was transferred to the intensive care unit. Cardiology consultation was placed. CARDINAL CARDIAC SYMPTOMS: Chest pain: The patient has had a 20-year history of intermittent retrosternal pressure that would radiate up into his jaw. Had a remote treadmill study triggered by this symptom showing a favorable prognosis at that time. He has been subsequently treated for gastroesophageal reflux with good effect. Despite his proton pump inhibitor therapy he continues to have occasional heartburn and dysphagia but no gastrointestinal (GI) bleeding. Denies effort related chest, jaw, or arm discomforts. Shortness of breath: Grew up with secondhand smoke and started smoking himself at age 13. During his life he had been smoking up to two packs per day but stopped 10 years ago. Has a chronic cough, worse the past year productive of clear sputum. No history of hemoptysis. Unaware of prior pneumonia. Chiefly limited by fatigue. Fiercely denies effort related shortness of breath. Longstanding history of snoring and restless sleeping with daytime sleepiness for at least the past year. Unaware of prior rheumatic fever or heart murmur. Treated hypertension for at least the past 10 years with home readings usually 140/80. Unaware of cardiomegaly. Has had a significant weight problem (weighed 160 pounds at age 16; maximum weight 230 pounds recently having gained 10 pounds in the past year). Palpitations: For many years claims to have had short-lived palpitations. Longest lasting several minutes possibly associated with some lightheadedness. No previously documented rhythm disturbance. No family history of premature sudden cardiac or congenital deafness. He has been told on occasion that his heart rate runs relatively slow at times. Longstanding history of moderate alcohol intake. Currently admits to drinking at least two alcoholic beverages daily. Drinks two or three glasses of iced tea and occasional rambo-awais, but only rare coffee. Current nonsmoker. Only recently has been using NyQuil, denies use of Actifed, Sudafed or Afrin nasal spray. Near syncope/ syncope: For at least the past 15 years has had intermittent positional unsteadiness. Has fallen on occasion. His syncopal spell 2015 attributed to heat fatigue. Has had two losses of consciousness within the past 18 hours; the first at home resulting in rib fractures and the second this afternoon on telemetry. Embolic phenomenon: History of peripheral neuropathy but no lateralized neurological deficit, flank pain, hematuria or blue toe syndrome. Claudication/peripheral venous disease: Subject to leg cramps but no typical effort related calf discomfort. Does have right hip arthralgia. Unaware of varicose veins, phlebitis or ankle swelling. Coronary risk factors: Advanced age. Male gender. Prior longstanding heavy smoker. Hypertension. Hypercholesterolemia. Glucose intolerance. No family history of premature coronary heart disease. OTHER PAST MEDICAL HISTORY/PAST SURGICAL HISTORY: Remote appendectomy and left foot fracture, bilateral cataract extraction 7-8 years ago. Depression. Gastroesophageal reflux disease. Smoking induced chronic pulmonary obstructive disease (COPD). REVIEW OF SYSTEMS: Denies any fever, chills but for the past year has had night sweats. Wears reading glasses. Edentulous. Wears dentures. GI: History as mentioned above. Nocturia every one hour but no hematuria or known renal insufficiency. All other systems review is negative. MEDICATIONS: Upon his admission his medications included: - Prozac 60 mg daily - Abilify 2 mg daily - omeprazole 20 mg daily - metformin 2 grams daily - glipizide 5 mg daily - allopurinol 300 mg daily - diltiazem ER 120 mg daily - potassium chloride 20 mEq daily - [id number] drops each ear twice a day for 5 days - vitamin D3 2000 units by mouth daily ALLERGIES: None known. PHYSICAL EXAMINATION: Constitutional: Barrel-chested, obese elderly male currently lying with the head of bed elevated 30 degrees. Is complaining of chest wall pain following his fall yesterday and from chest compressions earlier this afternoon. No pallor or cyanosis. Vital signs: Heart rate 58 bpm and regular, blood pressure 171/90 supine, 178/88 sitting with legs dependent (right arm) 168/84 (left arm sitting). Respiratory rate 22 per minute, O2 saturation 99% on supplemental oxygen by nasal prongs at 2 liters. Afebrile. Weight 225 pounds, height 69 inches, body mass index (BMI) 33.3. Eyes: Early senile arcus but no pallor or icterus. No conjunctival petechiae or xanthelasma. ENT/mouth: Edentulous with normal oral moisture. No central cyanosis. Neck: Trachea midline. Thyroid did not appear to be enlarged. Neck veins were at least 6 cm above the sternal angle. Respiratory: Increased anteroposterior chest configuration with reduced chest excursion with fair air entry. Has inspiratory crepitations one-third of the way up both lower lobes posteriorly. Slight prolongation of expiration but no audible wheeze. Cardiovascular: Apical impulse lateral to the mid line, 6th intercostal space. Heart sounds were somewhat distant but appear to be split, ? separate S4 gallop. S2 splitting was audible over the right base in keeping with pulmonary hypertension. Obvious systolic murmur grade 2/6 heard maximally along the left lower sternal border but also at the apex and less so at the right base. No pericardial rub. Normal carotid upstrokes with increased volume. No bruits. Upper extremity pulses and pedal pulses were symmetrical and normal. Brachial pulses were also symmetrical. Abdominal aorta was not palpable. Femoral pulses were also difficult because of his weight problem. No audible abdominal bruits. Extremities: No obvious varicose veins. No clubbing, peripheral cyanosis or splinter hemorrhages. GI: Obese, protuberant, soft, nontender abdomen. No palpable spleen. The liver span appeared to be at least 10 cm in the right midclavicular line. Rectal examination not indicated. Bowel sounds were normal. Musculoskeletal: As mentioned complaining of left-sided chest wall pain following his fall out of bed earlier this morning. No other obvious joint deformities. Some proximal muscle weakness but normal tone. Gait of course was not assessed at this time. Neuro/psych: Bright, alert and gave a reasonable history. Eye, facial, extremity movements appear to be symmetrical and normal. No abnormal movements. Affect appeared to be slightly depressed. Skin: No obvious ecchymotic lesions, pallor or icterus. INVESTIGATIONS: I reviewed his admission chest x-ray personally and this shows obvious cardiomegaly even allowing for this portable technique. His thoracic aorta was slightly unfolded with obvious pulmonary venous congestion and increased interstitial markings with probable right pleural effusion. His chest CT angiogram also performed earlier today was also reviewed independently and shows fairly gross cardiomegaly filling much of his chest. At least moderate degree of left atrial enlargement, left ventricle was normal in size with symmetrical left ventricular hypertrophy. There was considerable irregularity of the coronary arteries with calcification. His thoracic aorta was of normal size. His right ventricle was at least mildly dilated as was his right atrium. His pulmonary trunk was prominently dilated measuring 3.9 cm, left and right pulmonary vessels were also dilated. There is some pruning but no evidence of pulmonary embolism. His inferior vena cava was also dilated at 0.6 cm, epicardial fat pad. Evidence of a right pleural effusion. EKGs: Tracing taken today at 01:45 a.m. shows sinus rhythm at 73 bpm. Left atrial conduction disturbance. First-degree arteriovenous (AV) block. Left axis deviation with right bundle branch block, primary lateral ST/T-wave abnormalities. Followup tracing following his cardiac arrest at 03:48 p.m. showed sinus rhythm at 68 bpm. Again left atrial conduction disturbance and first-degree AV block, left axis and right bundle branch block with inferolateral primary repolarization abnormalities and obviously prolonged QT interval. TELEMETRY STRIPS: These show intermittent sinus bradycardia in the 40s and recurrent runs of polymorphic ventricular tachycardia. BLOOD WORK: Last blood work at 03:20 p.m. this afternoon showed a hemoglobin of 13 and normal white blood cell count and platelet count, normal PT/INR. Initial blood gas following his resuscitation on supplemental oxygen showed a pH of 7.39, pCO2 of 37.8, pO2 of 67. Chemistry this afternoon showed a potassium of 3.5, magnesium level of only 1.7, calcium 8.6 with albumin 3.6. Normal BUN of 11, creatinine 1.15, random glucose 196, marginally increased SGOT, normal serial CPK values. Troponin I levels were initially negative on presentation first this morning. Recent level of 0.1 at the 08:11 a.m. and trended downwards until this evening again measured 0.1. IMPRESSION/PLAN: 1. Polymorphic ventricular tachycardia: He is clearly having torsades de pointes with h polymorphic ventricular tachycardia in the setting of prolonged QT interval. Currently receiving multiple agents which may be contributing including his IV antibiotic therapy, moxifloxacin, his Prozac, Abilify, and his antibiotic were all discontinued. He was started on KCl 20 mEq four times a day for his relative of hypokalemia and magnesium runs were ordered 1 gram every 4 hours for six doses with magnesium oxide 400 mg twice a day to start tomorrow. We will monitor his electrolytes carefully. Remains in the intensive care unit on a monitor. At this time the patient wishes to be a full resuscitation. 2. Heart failure (unspecified): Has symptoms suggestive of decompensation gradually over the course of the past year with EKG evidence and radiographic evidence of a condition of some chronicity. Left ventricle hypertrophy likely related to his obesity and chronic hypertension. Prominently dilated right heart chambers and markedly dilated pulmonary trunk in keeping with likely separate cor pulmonale due to obstructive sleep apnea. Will be kept on a modest salt and fluid intake restriction along with his low carbohydrate diet. I have ordered Lasix 40 mg IV every 4 hours aiming to generate a negative fluid balance of 1500 mL for the time being. He has also been started on KCl as mentioned along with spironolactone 25 mg daily. Has an echocardiogram that was performed earlier today and will be reviewed personally. His chemistry including magnesium level be monitored closely. Once he is out of the intensive care unit will place a consult with the cardiac rehab program for congestive heart failure (CHF) education and gradual ambulation. 3. Abnormal EKG: Findings in keeping with his hypertension. Right bundle branch block, likely a reflection of his cor pulmonale and probably dilated right heart chambers. Has primary repolarization abnormalities likely related to his electrolyte disturbance and hypertension. Indeterminate troponin I level despite multiple risk factors. No history to suggest myocardial ischemia. Continues on restricted activity with supplemental oxygen by nasal prongs and [id number] heparin subcu. His diltiazem medication has been discontinued in light of his bradycardia and risk of precipitating further bouts of ventricular tachycardia at this time. 4. Hypertensive heart disease (benign with heart failure): Undoubtedly this is responsible for his left ventricular dysfunction. Admits to not following dietary measures and salt restriction which will be imposed here. His diltiazem was temporarily placed on hold as mentioned above. I am cautiously optimistic that diuretic therapy will improve blood pressure control as it relieves congestion. Receiving magnesium and potassium chloride replacement along with spironolactone. We will also introduce vasodilator therapy whether this is an LAURA inhibitor, angiotensin receptor makenna or Entresto will depend on his echocardiographic findings which I will review shortly. 5. Obesity (body mass index (BMI) 33/sleep disturbance/cor pulmonale/right heart failure: As mentioned his CT scan findings are out of keeping with left ventricular disease alone and likely are his right heart enlargement is related to his obesity and chronic sleep disturbance. Prior to his discharge home he should undergo a nocturnal oximetry study at least as a screen. Remains on controlled supplemental oxygen here. At this time I have discussed the crucial importance of compliance with a low-carbohydrate diet in hopes of losing weight and controlling his blood sugar. 6. Cardiac murmur (unspecified): Has a systolic ejection murmur likely left ventricular (LV) outflow tract in origin related to his age, and hypertension. I do not hear an insufficiency murmur. Likely has degenerative disease of both his aortic and mitral valves. No symptoms or signs of endocarditis. His echocardiogram will allow us to further define valvular structure and function. In light of his multiple coronary risk factors and abnormal EKG, as well as heart failure, it would be prudent to consider an evaluation of his coronary prognosis at least noninvasively. For the time being, he is not on a statin agent, aspirin, beta makenna or LAURA inhibitor pending his hospital course and echocardiographic findings. I discussed quite frankly with the patient his current cardiac disease and guarded prognosis. I also tried to contact his but could only leave a message on an answering machine. I will plan on following him closely with you and appreciate the opportunity to participate in his care. Best regards.
--- NOTE | 2019-08-13 00:31 | NOCOX ---
DATE OF PROCEDURE: 08/12/2019 NOTE: Overnight oximetry was performed on 2 liters by nasal cannula. The study did not start until 3:23 a.m. today. A total of 3 hours and 23 minutes of data was reviewed. Mean oxygen saturation for the study was 94% with a minimum recorded value of 74%. He spent 16.8% of his time with saturations less than or equal to 88% with the longest time being 2 minutes and 4 seconds. There was significant fluctuation to the SPO2 waveform suggestive of sleep disordered breathing. IMPRESSION: 1. Nocturnal hypoxemia, not effectively replaced on 2 liters. 2. Fluctuations to the SPO2 waveform suggestive of sleep disordered breathing, clinical correlation will be necessary.
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
== END 2019-08-12 09:51 | disposition expired | DRG 308 ==
LOC: M ED 01:39 → M ED INP 04:38 → M PCU 13:47 → M ICU 15:01
PROVIDERS: ADMIT Internal Medicine; ATTEND Internal Medicine
DX: I47.2 Ventricular tachycardia (principal); J69.0 Pneumonitis due to inhalation of food and vomit; I31.3 Pericardial effusion (noninflammatory); I45.10 Unspecified right bundle-branch block; E11.42 Type 2 diabetes mellitus with diabetic polyneuropathy; I46.9 Cardiac arrest, cause unspecified; I11.0 Hypertensive heart disease with heart failure; E78.5 Hyperlipidemia, unspecified; Z66 Do not resuscitate; I50.811 Acute right heart failure; I27.81 Cor pulmonale (chronic); K21.9 Gastro-esophageal reflux disease without esophagitis; M10.9 Gout, unspecified; F43.10 Post-traumatic stress disorder, unspecified; N40.1 Benign prostatic hyperplasia with lower urinary tract symptoms; F10.20 Alcohol dependence, uncomplicated; F32.9 Major depressive disorder, single episode, unspecified; E87.6 Hypokalemia; R55 Syncope and collapse; R00.1 Bradycardia, unspecified; I50.9 Heart failure, unspecified; R94.31 Abnormal electrocardiogram [ECG] [EKG]; E66.9 Obesity, unspecified; R09.1 Pleurisy; Z68.33 Body mass index [BMI] 33.0-33.9, adult; Z79.899 Other long term (current) drug therapy; Z79.84 Long term (current) use of oral hypoglycemic drugs; Z87.891 Personal history of nicotine dependence; Z90.49 Acquired absence of other specified parts of digestive tract; R91.8 Other nonspecific abnormal finding of lung field; G47.33 Obstructive sleep apnea (adult) (pediatric)